=== PATIENT | male | born 1995 | race Two or more races ===

== ENCOUNTER 2019-12-08 00:07 | Emergency (ER) | payer OTHER ==
[2019-12-08] MEDS ORDERED: NORMAL SALINE 1000 ML 1,000 ML IV ONE (00:36)
--- NOTE | 2019-12-08 01:36 | ER Document Report ---
ED Medical Screen (RME) - General Chief Complaint: Shortness Of Breath Stated Complaint: RAPID HEART BEAT/SHORTNESS OF BREATH Time Seen by Provider: 12/08/19 01:28 Notes: 24-year-old male chief complaint of mid chest pain that radiates to the left side of his chest. Symptoms started this afternoon/evening and then slowly progressively worsening. EMS came to the house, patient seemed fine at that time and declined transport, however he states he continued to feel worse so he came in to be evaluated. He states that he has a squeezing sensation in his chest and it makes him feel short of breath. He denies dizziness, passing out, nausea, vomiting, or any other locations of pain. He denies injury. He denies cough or fever. Past Medical History - Social History Frequency of alcohol use: None Drug Abuse: None Physical Exam - Vital signs Vitals: Temp Pulse Resp BP Pulse Ox 98.0 F 70 18 134/83 H 98 12/08/19 00:38 12/08/19 00:38 12/08/19 00:38 12/08/19 00:38 12/08/19 00:38 - Respiratory Respiratory status: No respiratory distress Breath sounds: Normal - Cardiovascular Rhythm: Regular. No: Tachycardia Heart sounds: Normal auscultation, S1 appreciated, S2 appreciated Course - Re-evaluation Re-evalutation: 12/08/19 01:35 Patient seems very anxious about his symptoms. His lungs are clear, vital signs unremarkable, EKG unremarkable. Attempted to reassure him, will obtain chest x- ray laboratory work-up, patient seems partially reassured so far, work-up pending. I have greeted and performed a rapid initial assessment of this patient. A comprehensive ED assessment and evaluation of the patient, analysis of test results and completion of the medical decision making process will be conducted by additional ED providers. - Vital Signs Vital signs: Temp Pulse Resp BP Pulse Ox 98.0 F 70 18 134/83 H 98 12/08/19 00:38 12/08/19 00:38 12/08/19 00:38 12/08/19 00:38 12/08/19 00:38
[2019-12-08 01:59] LABS: ABSOLUTE BASOPHILS # (AUTO) 0.1 10^3/uL (0.0-0.2); ABSOLUTE EOSINOPHILS # (AUTO) 0.1 10^3/uL (0.0-0.6); ABSOLUTE LYMPHOCYTES (AUTO) 2.8 10^3/uL (0.5-4.7); ABSOLUTE MONOCYTES (AUTO) 0.6 10^3/uL (0.1-1.4); ABSOLUTE NEUT (AUTO) 4.9 10^3/uL (1.7-8.2); BASOPHILS % (AUTO) 0.6 % (0-2); EOSINOPHILS % (AUTO) 0.9 % (0-6); HEMOGLOBIN 15.8 g/dL (13.5-17.0); LYMPHOCYTES % (AUTO) 33.6 % (13-45); MEAN CORPUSCULAR HEMOGLOBIN 29.6 pg (27.0-33.4); MEAN CORPUSCULAR HGB CONC 34.4 g/dL (32.0-36.0); MEAN CORPUSCULAR VOLUME 86 fl (80-97); MONOCYTES % (AUTO) 6.8 % (3-13); PLATELET COUNT 276 10^3/uL (150-450); RED BLOOD COUNT 5.34 10^6/uL (4.35-5.55); RED CELL DISTRIBUTION WIDTH 13.9 % (11.5-14.0); SEGMENTED NEUTROPHILS % (AUTO) 58.1 % (42-78); TOTAL CELLS COUNTED % (AUTO) 100 %; WHITE BLOOD COUNT 8.5 10^3/uL (4.0-10.5)
[2019-12-08 02:09] LABS: ALKALINE PHOSPHATASE 81 U/L (38-126); ANION GAP 11 (5-19); ASPARTATE AMINO TRANSFERASE 38 U/L (17-59); BILIRUBIN,DIRECT 0.2 mg/dL (0.0-0.4); BILIRUBIN,TOTAL 0.8 mg/dL (0.2-1.3); BLOOD UREA NITROGEN 20 mg/dL (7-20); CALCIUM 9.8 mg/dL (8.4-10.2); CARBON DIOXIDE 23 mmol/L (22-30); CHLORIDE 105 mmol/L (98-107); CREATINE KINASE 271 U/L (55-170); GLUCOSE 115 mg/dL (75-110); POTASSIUM 3.5 mmol/L (3.6-5.0); TOTAL PROTEIN 8.1 g/dL (6.3-8.2)
--- NOTE | 2019-12-08 02:10 | RADIOLOGY REPORT (SQ) ---
CLINICAL INDICATION: chest pain. TECHNIQUE: A single portable AP view was obtained of the chest at 0200 hours. COMPARISON: None. FINDINGS: The cardiomediastinal silhouette is normal. The lungs are grossly clear. No evidence of effusion or pneumothorax. The visualized bones are unremarkable. IMPRESSION: No evidence of active intrathoracic disease.
[2019-12-08] MEDS ORDERED: DEXAMETHASONE SOD PHOS INJ 10 MG/1 ML VIAL IM ONE (03:26)
--- NOTE | 2019-12-08 03:31 | ER Document Report ---
ED General - General Chief Complaint: Shortness Of Breath Stated Complaint: RAPID HEART BEAT/SHORTNESS OF BREATH Time Seen by Provider: 12/08/19 01:28 Notes: Patient is a 24-year-old male chief complaint of mid chest pain that radiates to the left side of his chest. Symptoms started this afternoon/evening and then slowly progressively worsening. EMS came to the house, patient seemed fine at that time and declined transport, however he states he continued to feel worse so he came in to be evaluated. He states that he has a squeezing sensation in his chest and it makes him feel short of breath. He denies dizziness, passing out, nausea, vomiting, or any other locations of pain. He denies injury. He denies cough or fever. He denies smoking, frequent alcohol, or any recreational drugs. Past Medical History - General Information source: Patient - Social History Smoking Status: Never Smoker Frequency of alcohol use: None Drug Abuse: None Lives with: Family Family History: Reviewed & Not Pertinent Surgical Hx: Negative - Immunizations Immunizations up to date: Yes Hx Diphtheria, Pertussis, Tetanus Vaccination: Yes Review of Systems - Review of Systems Constitutional: No symptoms reported EENT: No symptoms reported Cardiovascular: See HPI Respiratory: See HPI Gastrointestinal: No symptoms reported Genitourinary: No symptoms reported Male Genitourinary: No symptoms reported Musculoskeletal: See HPI Skin: No symptoms reported Hematologic/Lymphatic: No symptoms reported Neurological/Psychological: No symptoms reported Physical Exam - Vital signs Vitals: Temp Pulse Resp BP Pulse Ox 98.0 F 70 18 134/83 H 98 12/08/19 00:38 12/08/19 00:38 12/08/19 00:38 12/08/19 00:38 12/08/19 00:38 - Notes Notes: GENERAL: Alert, interacts well. No acute distress. HEAD: Normocephalic, atraumatic. EYES: Pupils equal, round, and reactive to light. Extraocular movements intact. ENT: Oral mucosa moist, tongue midline. Oropharynx unremarkable. Airway patent. NECK: Full range of motion. Supple. Trachea midline. No lymphadenopathy. LUNGS: Clear to auscultation bilaterally, no wheezes, rales, or rhonchi. No respiratory distress. Chest wall is specifically tender, this is across both mid anterior chest sides but slightly worse on the left. No erythema, crepitus, signs of injury, swelling. Symptoms are worse when patient extends his arms/shoulders out and back. Unremarkable otherwise. HEART: Regular rate and rhythm. No murmur ABDOMEN: Soft, non-tender. Non-distended. EXTREMITIES: Moves all 4 extremities spontaneously. No edema, normal radial and dorsalis pedis pulses bilaterally. No cyanosis. BACK: no cervical, thoracic, lumbar midline tenderness. No saddle anesthesia, normal distal neurovascular exam. Moves all extremities in full range of motion. NEUROLOGICAL: Alert and oriented x3. Normal speech. Cranial nerves II through XII grossly intact. Strength 5/5 in all extremities. PSYCH: Normal affect, normal mood. SKIN: Warm, dry, normal turgor. No rashes or lesions noted. Course - Re-evaluation Re-evalutation: Patient was very anxious when I saw him in triage, on reevaluation he has calmed down considerably. EKG unremarkable, chest x-ray unremarkable, CBC, chemistry, troponin negative except for borderline low potassium and slightly elevated CK. Vital signs unremarkable. On reevaluation patient continues to have chest pain on palpation. Patient admits that a day or so ago he did a lot of "flies for the chest", he does has reproducible soreness from this, he also had appears to have costochondritis on exam. Based on his presentation, work-up, risk factors, heart score of 0, vital signs I have a very low suspicion of any acute intrathoracic etiology. Discussed treatment, his provided with dexamethasone, he will take [id number] anti-inflammatories, hydrate, increase potassium in his diet, follow-up with primary care, and return if he worsens. Discussed return precautions in detail. Patient states understanding and agreement. - Vital Signs Vital signs: Temp Pulse Resp BP Pulse Ox 98.0 F 72 16 124/80 98 12/08/19 04:03 12/08/19 04:03 12/08/19 04:03 12/08/19 04:03 12/08/19 04:03 - Laboratory Result Diagrams: 12/08/19 01:48 12/08/19 01:48 Laboratory results interpreted by me: 12/08/19 01:48 Potassium 3.5 L Glucose 115 H Creatine Kinase 271 H - EKG Interpretation by Me Additional EKG results interpreted by me: EKG shows sinus rhythm at a rate of 62, QTc 431, normal axis, no T wave inversions or ST segment changes in consecutive leads Discharge - Discharge Clinical Impression: Chest wall pain Condition: Stable Disposition: HOME, SELF-CARE Additional Instructions: Your work-up does not show any concerning findings. Your potassium was slightly low, increase potassium in your diet and have this routinely rechecked with primary care. I suspect your symptoms are caused by costochondritis, inflammation of the cartilage in between your ribs. You have had initial treatment for this, you can apply warm compresses, take [id number] anti- inflammatory such as naproxen or ibuprofen, and rest. After symptoms resolve resume normal activity, avoid straining activity while you are recovering. Follow-up with primary care. Return if you worsen including severe worsening pain, fever, vomiting, difficulty breathing, or any other concerning or worsening symptoms. Forms: Return to Work
[2019-12-08 04:05] VITALS: BP 124/80
--- NOTE | 2019-12-08 10:27 | EKG REPORT ---
SEVERITY:- NORMAL ECG - SINUS RHYTHM : Confirmed by: Darcy Sims MD 08-Dec-2019 10:27:14
== END 2019-12-08 04:03 | disposition home or self-care (01) ==
LOC: ER 00:07
DX: R07.89 Other chest pain (principal)
CPT/HCPCS: 93005; 99285; 96372; 36415; 82550; 85025; 80053; 84484; 71045; 93010; J1100